=== PATIENT | female | born 1980 ===

== ENCOUNTER 2017-08-22 17:56 | Emergency (ER) | payer MEDICAID ==
[2017-08-22 18:07] VITALS: BP 112/74; PULSE 69; RESP 18; TEMP 98.2; O2SAT 100
--- NOTE | 2017-08-22 18:54 | ED PDOC ---
HPI: Back Time Seen by Provider: 08/22/17 18:05 Chief Complaint (Nursing): Back Pain Chief Complaint (Provider): Right lower back pain x hours History Per: Patient History/Exam Limitations: no limitations Onset/Duration Of Symptoms: Days Current Symptoms Are (Timing): Still Present Quality Of Discomfort: Sharp Severity: Severe Pain Scale Rating Of: 8 Previous Symptoms: None Associated Symptoms: None Additional Complaint(s): Pt denies similar in the past. Pt reports taking motrin at home. Pt denies trauma. Past Medical History Reviewed: Historical Data, Nursing Documentation, Vital Signs Vital Signs: Last Vital Signs Temp 98.2 F 08/22/17 18:04 Pulse 69 08/22/17 18:04 Resp 18 08/22/17 18:04 BP 112/74 08/22/17 18:04 Pulse Ox 100 08/22/17 18:04 - Medical History PMH: No Chronic Diseases Denies: HTN - Surgical History Surgical History: (05/30/14) - Family History Family History: States: Unknown Family Hx - Living Arrangements Living Arrangements: With Family - Social History Current smoker - smoking cessation education provided: No - Home Medications Home Medications: Ambulatory Orders Medication Instructions Recorded Famotidine [Pepcid] 20 mg PO BID PRN #20 tab 04/07/16 Nitrofurantoin Macrocrystals 100 mg PO BID #14 cap 04/07/16 [Macrobid] Cyclobenzaprine [Cyclobenzaprine 10 mg PO Q8H #20 tab 08/22/17 HCl] Ibuprofen [Motrin Tab] 800 mg PO Q6H PRN #20 tab 08/22/17 - Allergies Allergies/Adverse Reactions: Allergies Allergy/AdvReac Type Severity Reaction Status Date / Time No Known Allergies Allergy Verified 08/22/17 18:04 Review of Systems ROS Statement: Except As Marked, All Systems Reviewed And Found Negative Constitutional: Negative for: Fever, Chills Gastrointestinal: Negative for: Nausea, Vomiting, Abdominal Pain, Diarrhea Genitourinary Female: Negative for: Dysuria, Frequency Musculoskeletal: Positive for: Back Pain Physical Exam - Reviewed Nursing Documentation Reviewed: Yes Vital Signs Reviewed: Yes - Physical Exam Appears: Positive for: Well, Non-toxic, No Acute Distress Head Exam: Positive for: ATRAUMATIC, NORMAL INSPECTION, NORMOCEPHALIC Skin: Positive for: Normal Color, Warm, DRY Eye Exam: Positive for: Normal appearance ENT: Positive for: Normal ENT Inspection Neck: Positive for: Normal, Painless ROM Cardiovascular/Chest: Positive for: Regular Rate, Rhythm Respiratory: Positive for: Normal Breath Sounds. Negative for: Accessory Muscle Use, Respiratory Distress Gastrointestinal/Abdominal: Positive for: Normal Exam, Soft. Negative for: Tenderness Back: Positive for: Normal Inspection, Other ((+) right leg raise ) Extremity: Positive for: Normal ROM Neurologic/Psych: Positive for: Alert, Oriented - ECG O2 Sat by Pulse Oximetry: 100 (RA) Pulse Ox Interpretation: Normal Medical Decision Making Medical Decision Making: Time: 18:46 Initial Plan: --ED Urine --ED Urine dipstick --Fexeril 10mg PO --Tylenol 650mg PO Scribe Attestation: Documented by Neelima Mariano, acting as a scribe for Leeann Sanon PA-C Provider Scribe Attestation: All medical entries made by the Scribe were at my direction and personally dictated by me. I have reviewed the chart and agree that the record accurately reflects my personal performance of the history, physical exam, medical decision making, and the department course for this patient. I have also personally directed, reviewed, and agree with the discharge instructions and disposition. Disposition - Clinical Impression Clinical Impression: Sciatica - Patient ED Disposition Is Patient to be Admitted: No Counseled Patient/Family Regarding: Diagnosis, Need For Followup, Rx Given - Disposition Disposition: Routine/Home Disposition Time: 20:50 Condition: GOOD Prescriptions: Cyclobenzaprine [Cyclobenzaprine HCl] 10 mg PO Q8H #20 tab Ibuprofen [Motrin Tab] 800 mg PO Q6H PRN #20 tab PRN Reason: Pain Instructions: Sciatica Exercises, Sciatica Forms: [employer] Print Language: PASHTO
== END 2017-08-22 21:02 | disposition home or self-care (01) ==
LOC: H.ER 17:56
DX: M54.31 Sciatica, right side (principal)

== ENCOUNTER 2017-08-23 04:20 | Emergency (ER) | payer MEDICAID ==
[2017-08-23 04:44] VITALS: BMI 30.5
[2017-08-23 04:47] VITALS: PULSE 61; RESP 18; TEMP 98.6; O2SAT 99
--- NOTE | 2017-08-23 05:10 | ED PDOC ---
HPI: Back Chief Complaint (Provider): lower back pain History Per: Patient History/Exam Limitations: no limitations Onset/Duration Of Symptoms: Days Current Symptoms Are (Timing): Still Present Quality Of Discomfort: "Pain" Pain Scale Rating Of: 10 Previous Symptoms: Chronic Pain Exacerbating Factor(s): Movement Additional Complaint(s): 37 y/o female with PMHx of chronic lower back pain for 2-3 years presents to Ed complaining of lower back pain. Patient states that she started with a new episode of lower back pain 3 days ago. Initially the pain was controlled with Ibuprofen 800 mg PO, but since yesterday Thursday morning the LB pain was getting worse, Ibuprofen was not helping, and she decided to come to ED for evaluation. Patient was seen at ED yesterday, 08/22/17, for similar complains, given tylenol and flexeril, and sent home on Ibuprofen and flexeril. However patient states when she went home the pain started getting worse again, unbearable, and she came to ED again for eval and treatment. Denies radiation to lower extremities, numbness, tingling, weakness of Nora. Denies bladder or bowel incontinence or loss of sensation. Denies recent trauma or in the past. Denies urinary symptoms. PMD: Dr. Onur Lopez <Daniela Kaminski - Last Filed: 08/23/17 06:19> <Alonso Hernandes - Last Filed: 08/25/17 11:46> Time Seen by Provider: 08/23/17 04:52 Chief Complaint (Nursing): Back Pain Past Medical History Vital Signs: Last Vital Signs Temp 98.6 F 08/23/17 04:43 Pulse 61 08/23/17 04:43 Resp 18 08/23/17 04:43 BP Pulse Ox 99 08/23/17 04:43 - Medical History PMH: Denies: HTN - Surgical History Surgical History: (05/30/14) - Family History Family History: States: Unknown Family Hx <Daniela Kaminski - Last Filed: 08/23/17 06:19> Reviewed: Historical Data, Nursing Documentation, Vital Signs Vital Signs: Last Vital Signs Temp 98.6 F 08/23/17 04:43 Pulse 61 08/23/17 04:43 Resp 18 08/23/17 04:43 BP 107/51 L 08/23/17 06:18 Pulse Ox 99 08/23/17 06:21 - Medical History PMH: No Chronic Diseases <Alonso Hernandes - Last Filed: 08/25/17 11:46> - Home Medications Home Medications: Ambulatory Orders Medication Instructions Recorded Famotidine [Pepcid] 20 mg PO BID PRN #20 tab 04/07/16 Nitrofurantoin Macrocrystals 100 mg PO BID #14 cap 04/07/16 [Macrobid] Cyclobenzaprine [Cyclobenzaprine 10 mg PO Q8H #20 tab 08/22/17 HCl] Ibuprofen [Motrin Tab] 800 mg PO Q6H PRN #20 tab 08/22/17 - Allergies Allergies/Adverse Reactions: Allergies Allergy/AdvReac Type Severity Reaction Status Date / Time No Known Allergies Allergy Verified 08/23/17 04:43 Supervising Attending Note - Supervising Attending Note The Documented history was done by the: Physician Frame Fixer, Attending Physician The documented physical exam was done by the: Physician Frame Fixer, Attending Physician The documented procedures were done by the: Physician Frame Fixer, Attending Physician - Attestation: I have personally seen and examined this patient.: Yes I have fully participated in the care of the patient.: Yes I have reviewed all pertinent clinical information: Yes <Alonso Hernandes - Last Filed: 08/25/17 11:46> Review of Systems ROS Statement: Except As Marked, All Systems Reviewed And Found Negative (as per HPI) <Daniela Kaminski - Last Filed: 08/23/17 06:19> ROS Statement: Except As Marked, All Systems Reviewed And Found Negative <Alonso Hernandes - Last Filed: 08/25/17 11:46> Physical Exam - Reviewed Nursing Documentation Reviewed: Yes Vital Signs Reviewed: Yes - Physical Exam Appears: Positive for: Non-toxic, No Acute Distress, Uncomfortable Head Exam: Positive for: ATRAUMATIC Skin: Positive for: Normal Color, Warm, Dry Eye Exam: Positive for: Normal appearance Neck: Positive for: Normal, Supple Cardiovascular/Chest: Positive for: Regular Rate, Rhythm Respiratory: Positive for: Normal Breath Sounds. Negative for: Accessory Muscle Use, Crackles, Rales, Rhonchi, Stridor, Wheezing, Respiratory Distress Gastrointestinal/Abdominal: Positive for: Bowel Sounds, Soft. Negative for: Tenderness, Distended, Guarding, Rebound Back: Positive for: Decreased ROM, Other (tender to palpation over lumbosacral spi, and paraspinal muscles. ) Extremity: Negative for: Tenderness, Calf Tenderness <Daniela Kaminski - Last Filed: 08/23/17 06:19> - ECG O2 Sat by Pulse Oximetry: 99 <Daniela Kaminski - Last Filed: 08/23/17 06:19> Medical Decision Making Medical Decision Making: Lower Back pain -atraumatic -without sciatica -acute on chronic pain -Toradol 30 mg IM once -flexeril 10 mg PO once -re-evaluation Re-evaluation -s/p Toradol and flexeril -patient states pain has improved significantly -stable to be discharge home on Ibuprofen and flexeril PO schedule with meals, and outpatient f/u with PMD in 1 week. -ER precautions given <Daniela Kaminski - Last Filed: 08/23/17 06:19> Disposition - Patient ED Disposition Is Patient to be Admitted: No Discussed With : Alonso Hernandes - Disposition Disposition: Routine/Home Disposition Time: 06:20 <Daniela Kaminski - Last Filed: 08/23/17 06:19> <Alonso Hernandes - Last Filed: 08/25/17 11:46> - Clinical Impression Clinical Impression: Low back pain - Disposition Referrals: [facility] [Outside] Condition: GOOD Additional Instructions: Take your medications as instructed. Follow up with your PCP in 2-3 days. Instructions: Low Back Pain in Adults Print Language: MALIAN
[2017-08-23 06:18] VITALS: BP 107/51
== END 2017-08-23 06:20 | disposition home or self-care (01) ==
LOC: H.ER 04:20
DX: M54.5 Low back pain (principal); G89.29 Other chronic pain
CPT/HCPCS: 96372; 99283; J1885